=== PATIENT | female | born 1970 | race Caucasian/White ===

== ENCOUNTER → 2017-07-22 | Outpatient (REF) ==
[~2017-07-22] MED LIST: CALC300T PO; LOR5 PO; MULT-1335 PO; VENL75TA PO
== END ==
LOC: AUD 13:45
PROVIDERS: ATTEND Family Medicine
DX: Z01.10 Encounter for examination of ears and hearing without abnormal findings (principal)
CPT/HCPCS: 92552

== ENCOUNTER → 2018-07-14 | Outpatient (REF) ==
[~2018-07-14] MED LIST changes: +AMOX-362 PO; +CALC-852 PO; +L-NO1TBD18 PO; +L-NO1TBD6 PO
== END ==
LOC: AUD 13:40
PROVIDERS: ATTEND Family Medicine
DX: Z01.12 Encounter for hearing conservation and treatment (principal)
CPT/HCPCS: 92552